=== PATIENT | male | born 1975 | race Caucasian/White ===

== ENCOUNTER 2024-02-29 19:11 | Emergency (ER) | payer OTHER ==
[2024-02-29] MEDS: ACETAMINOPHEN *IV* 1,000 MG in IV 1 EA IV ONE (20:23)
[2024-02-29 21:10] LABS: VENOUS BASE EXCESS 0.5 (-2.0-2.0); VENOUS HCO3 28.3 MMOL/L (23.0-27.0); VENOUS O2 SATURATION 58.7 % (60.0-80.0); VENOUS PARTIAL PRESSURE CO2 56.4 mmHg (38.0-50.0); VENOUS PARTIAL PRESSURE O2 29.6 mmHg (30.0-50.0); VENOUS PH 7.318 UNITS (7.330-7.430); VENOUS STANDARD HCO3 23.8 MMOL/L
[2024-02-29] MEDS ORDERED: ISOVUE-370 76% 100ML VIAL As Ordered ONE (21:13)
[2024-02-29 21:21] LABS: BASO # 0.1 10^3/uL (0.0-0.2); BASO % 0.8 % (0.0-1.0); EOS # 0.2 10^3/uL (0.0-0.5); EOS % 1.2 % (0.0-3.0); HEMATOCRIT 49.3 % (42.0-52.0); HEMOGLOBIN 17.2 g/dl (13.5-17.5); LYMPH # 1.9 10^3/uL (1.5-5.0); LYMPH % 13.3 % (24.0-44.0); MEAN CORPUSCULAR HEMOGLOBIN 33.1 pg (27.0-33.0); MEAN CORPUSCULAR HGB CONC 34.9 g/dl (32.0-36.5); MEAN CORPUSCULAR VOLUME 94.8 fl (80.0-96.0); MONO # 0.8 10^3/uL (0.0-0.8); MONO % 5.3 % (2.0-8.0); NEUTROPHILS # 11.6 10^3/uL (1.5-8.5); PLATELET COUNT, AUTOMATED 250 10^3/uL (150-450); WHITE BLOOD COUNT 14.6 10^3/uL (4.0-10.0)
[2024-02-29 21:33] LABS: PARTIAL THROMBOPLASTIN TIME 28.1 SECONDS (24.8-34.2); PROTHROMBIN TIME 13.5 SECONDS (12.5-14.5)
[2024-02-29 21:37] LABS: LIPASE 35 U/L (12-53)
[2024-02-29 21:38] LABS: CK-MB VALUE MASS 1.1 NG/ML (<3.6)
[2024-02-29 21:39] LABS: AMYLASE 82 U/L (30-118)
[2024-02-29 21:43] LABS: ALBUMIN 4.2 G/DL (3.2-5.2); ALKALINE PHOSPHATASE 39 U/L (40-129); ALT/SGPT 67 U/L (7.0-40); AST/SGOT 36 U/L (<34); BILIRUBIN,DIRECT 0.3 MG/DL (<0.4); BILIRUBIN,TOTAL 1.3 MG/DL (0.3-1.2); BLOOD UREA NITROGEN 13 MG/DL (9-23); CALCIUM LEVEL 9.3 MG/DL (8.5-10.1); CARBON DIOXIDE LEVEL 30 MMOL/L (20-31); CHLORIDE LEVEL 102 MMOL/L (98-107); GLOMERULAR FILTRATION RATE > 60.0 (>56); GLUCOSE, FASTING 86 MG/DL (60-100); POTASSIUM SERUM 4.6 MMOL/L (3.5-5.1); SODIUM LEVEL 138 MMOL/L (136-145); TOTAL PROTEIN 7.3 G/DL (5.7-8.2)
[2024-02-29 21:47] LABS: CPK CREATINE PHOSPHOKINASE 151 U/L (46-171); MB/CK RELATIVE INDEX 0.72 (< OR =4)
[2024-02-29 23:46] VITALS: BP 147/85; TEMP 97.1; O2SAT 98
== END 2024-02-29 23:45 | disposition home or self-care (01) ==
LOC: M ED 19:11
DX: S29.002A Unspecified injury of muscle and tendon of back wall of thorax, initial encounter (principal); Y92.9 Unspecified place or not applicable; Y93.9 Activity, unspecified; Y99.9 Unspecified external cause status; V49.50XA Passenger injured in collision with unspecified motor vehicles in traffic accident, initial encounter; R94.31 Abnormal electrocardiogram [ECG] [EKG]; F17.210 Nicotine dependence, cigarettes, uncomplicated; F10.10 Alcohol abuse, uncomplicated
CPT/HCPCS: 36415; 70450; 71260; 72125; 72128; 74177; 80047; 80048; 80076; 82150; 82550; 82553; 82803; 83605; 83690; 84484; 85025; 85610; 85730; 86850; 86900; 86901; 93005; 94760; 96365; 99285; J0131; Q9967

== ENCOUNTER 2024-03-10 08:31 | Day surgery (SDC) | payer OTHER ==
[~2024-03-10] VITALS: Ht 180.3 cm; Wt 94.2 kg
[2024-03-10] MEDS ORDERED: LIDOCAINE 2% 100MG/5ML SDV (FOR ANES.) As Ordered ONE (11:29)
[2024-03-10] MEDS ORDERED: propofoL 200 MG/20 ML VIAL As Ordered ONE (11:29)
[2024-03-10 11:35] VITALS: TEMP 98
[2024-03-10 11:54] VITALS: BP 142/83; O2SAT 98
== END 2024-03-10 12:03 | disposition home or self-care (01) ==
LOC: M OPP 08:31
PROVIDERS: ATTEND Surgery
DX: Z12.11 Encounter for screening for malignant neoplasm of colon (principal); D12.0 Benign neoplasm of cecum; D12.5 Benign neoplasm of sigmoid colon; F17.210 Nicotine dependence, cigarettes, uncomplicated

== ENCOUNTER 2024-11-08 10:47 | Day surgery (SDC) | payer OTHER ==
[~2024-11-08] VITALS: Ht 177.8 cm; Wt 99.1 kg
[~2024-11-08 10:47] MED LIST: LIDOCAINE 2% 100 MG/5 ML SDV (FOR ANES.) As Ordered ONE
[2024-11-08 11:55] VITALS: TEMP 97.2
[2024-11-08] MEDS ORDERED: IPRATROPIUM 0.5 MG/ALBUTEROL 2.5 MG INH SOL UD 3 ML NEB STA (11:56)
[2024-11-08] MEDS: LEVALBUTEROL 1.25 MG 0.5ML CONCENTRATE NEB NEB STA (12:03)
[2024-11-08 12:21] VITALS: BP 140/98
[2024-11-08] MEDS: IPRATROPIUM 0.5 MG/2.5 ML (0.02%) SOLN NEB NEB STA (12:34)
[2024-11-08 14:10] VITALS: O2SAT 93
== END 2024-11-08 14:18 | disposition home or self-care (01) ==
LOC: M OPP 10:47
PROVIDERS: ATTEND Surgery
DX: D12.6 Benign neoplasm of colon, unspecified (principal); Z86.0100 Personal history of colon polyps, unspecified
CPT/HCPCS: 45385; 88305; J3010